=== PATIENT | male | born 1950 | race Caucasian/White ===

== ENCOUNTER 2023-11-06 13:25 | Inpatient (IN) ==
[2023-11-06] MEDS ORDERED: cefTRIAXone 2 GM ADDV.VIAL 2 GM in NS 0.9% 100 ml BAG 100 ML IV ONE (13:48)
[2023-11-06 13:52] LABS: ABS Lymphocytes 0.5 10^3/uL (1.0-4.8); ABS Monocytes 0.3 10^3/uL (0.0-1.1); ABS Neutrophils 3.7 10^3/uL (1.5-7.6); Eosinophil % 0.2 %; Hematocrit 39.4 % (38-53); Lymphocyte % 10.7 %; Mean Corpuscular Hemoglobin 29.7 pg (27-33); Mean Corpuscular Hgb Conc 33.1 g/dL (31-36); Mean Corpuscular Volume 89.8 fL (80-97); Mean Platelet Volume 7.1 fL (7.5-11.2); Nucleated Red Blood Cells % 0.1 %/100WBC (0.0-0.8); Platelet Count 160 10^3/uL (150-450); Red Blood Count 4.38 10^6/uL (4.06-5.63); Red Cell Distribution Width 15.6 % (12-17); White Blood Count 4.5 10^3/uL (3.6-10.2)
[2023-11-06 14:20] LABS: Activated Partial Thrombo Time 31.7 seconds (26.0-38.0); INR 1.19 (0.83-1.13)
[2023-11-06 14:26] LABS: Albumin 3.5 g/dL (3.2-5.2); Albumin/Globulin Ratio 1.1 (1-3); Calcium 8.8 mg/dL (8.6-10.3); Creatinine, Serum 2.15 mg/dL (0.67-1.17); Direct Bilirubin 0.1 mg/dL (0.03-0.18); Globulin 3.1 g/dL (2-4); HDL Cholesterol 32.5 mg/dL; Indirect Bilirubin 0.5 mg/dL (0.3-1.0); Potassium 4.7 mmol/L (3.5-5.0); Total Bilirubin 0.6 mg/dL (0.2-1.0); Total Protein 6.6 g/dL (6.4-8.9); eGFR CKD-EPI 31.7 (>60)
[2023-11-06 14:29] LABS: Urine Appearance Clear; Urine Bilirubin Negative (Negative); Urine Blood Negative (Negative); Urine Color Light-Yellow; Urine Glucose Negative (Negative); Urine Ketones Negative (Negative); Urine Nitrite Negative (Negative); Urine Protein 2+ (>=100 mg/dL) (Negative); Urine Specific Gravity 1.018 (1.002-1.030); Urine Urobilinogen Negative (Negative); Urine pH 7.5 (5.0-8.0)
[2023-11-06 14:31] LABS: Urine Bacteria Absent /HPF (Absent); Urine Red Blood Cell Trace(0-2/hpf) /HPF (0-Trace); Urine White Blood Cell Absent /HPF (0-Trace)
[2023-11-06 14:36] LABS: PCO2 Arterial 41 mmHg (35-45); PO2 Arterial 106 mmHg (80-100)
[2023-11-06] MEDS: Acetaminophen IV 1 GM/100ML 1,000 MG/100 ML BAG IV ONE (14:47)
[2023-11-06] MEDS: Lactated Ringers 1000 ml BAG 1,000 ML IV ONE (14:47)
[2023-11-06] MEDS: cefTRIAXone 2 gm/50 mL D5W 2 GM/50 ML BAG IV ONE (15:11)
[2023-11-06] MEDS ORDERED: Ampicillin IV 2 GM in NS 0.9% 100 ml BAG 100 ML IVPB ONE (16:35)
[2023-11-06] MEDS ORDERED: Lidocaine 1% w EPI 1:100,000 MDV 20 ML VIAL ONE (16:57)
[2023-11-06] MEDS ORDERED: Vancomycin 1,000 MG VIAL IVPB SCH (17:00)
[2023-11-06 17:55] LABS: Body Fluid Source Cerebral Spinal
[2023-11-06 18:11] LABS: CSF Body Fluid WBC 2 /mcL
[2023-11-06 18:12] LABS: Body Fluid Appearance Clear; Body Fluid Color Colorless
[2023-11-06 18:13] LABS: CSF Tube # 4
[2023-11-06] MEDS: Iodixanol (CONTRAST) 320 MG/ML 100 ML SDV IV ONE (18:36)
[2023-11-06 18:40] LABS: Body Fluid Mono 45 %; Body Fluid Total Cells Counted 75
[2023-11-06] MEDS: Ampicillin ADVAN 2 GM in NS 0.9% 100 ML 100 ML IVPB ONE (18:41)
[2023-11-06] MEDS: Vancomycin 2,000 MG in NS 0.9% 500 ml BAG 500 ML IVPB ONE (18:43)
[2023-11-06 19:45] LABS: CSF Glucose 75 mg/dL (40-70)
[2023-11-07] MEDS: NS 0.9% IVPB ONE (00:01)
[2023-11-07] MEDS: ACYCLOVIR IVPB ONE (00:01)
[2023-11-07 01:09] LABS: High Sensitivity Troponin 3 Hr 40 pg/mL (<20)
[2023-11-07] MEDS: Lactated Ringers 1000 ml BAG 1,000 ML IV SCH (01:39)
[2023-11-07] MEDS: Enoxaparin 40 MG/0.4 ML SYR SUBCUT SCH (01:57)
[2023-11-07 02:09] LABS: C Reactive Protein 52.16 mg/L (<8.01)
[2023-11-07 02:25] LABS: TSH Ultra Thyroid Stim Horm 1.22 mcIU/mL (0.34-5.60)
[2023-11-07] MEDS: cefTRIAXone 2 gm/50 mL D5W 2 GM/50 ML BAG IV SCH ×2 (03:09→16:41)
[2023-11-07 04:23] LABS: ABS Lymphocytes 0.4 10^3/uL (1.0-4.8); ABS Monocytes 0.4 10^3/uL (0.0-1.1); ABS Neutrophils 6.9 10^3/uL (1.5-7.6); ABS Nucleated RBC 0.01 10^3/ul; Hematocrit 38.5 % (38-53); Hemoglobin 12.8 g/dL (13.2-16.3); Lymphocyte % 4.7 %; Mean Corpuscular Hgb Conc 33.3 g/dL (31-36); Mean Platelet Volume 7.3 fL (7.5-11.2); Nucleated Red Blood Cells % 0.1 %/100WBC (0.0-0.8); Platelet Count 144 10^3/uL (150-450); Red Blood Count 4.27 10^6/uL (4.06-5.63); Red Cell Distribution Width 15.8 % (12-17); White Blood Count 7.7 10^3/uL (3.6-10.2)
[2023-11-07 05:03] LABS: Albumin 3.1 g/dL (3.2-5.2); Calcium 8.1 mg/dL (8.6-10.3); Creatinine, Serum 2.28 mg/dL (0.67-1.17); Magnesium 1.7 mg/dL (1.9-2.7); Potassium 4.3 mmol/L (3.5-5.0); Total Bilirubin 0.6 mg/dL (0.2-1.0); eGFR CKD-EPI 29.6 (>60)
[2023-11-07 05:19] LABS: Globulin 3.1 g/dL (2-4); Total Protein 6.2 g/dL (6.4-8.9)
[2023-11-07] MEDS: Haloperidol 5 mg/ml SDV IV/IM 5 MG/ML AMP IV SLOW PU PRN (06:49)
[2023-11-07] MEDS: Mometasone/Formoter 200/5 MDI INH SCH (08:08)
[2023-11-07] MEDS: Acetaminophen IV 1 GM/100ML 1,000 MG/100 ML BAG IV PRN (12:13)
[2023-11-07] MEDS ORDERED: Vancomycin per Pharmacy 1 EA NOTE FOLLOW UP SCH (13:00)
[2023-11-07] MEDS: Magnesium Sulf 4 GM/100 ML IV 4,000 MG/100 ML BAG IVPB ONE (13:04)
[2023-11-07] MEDS: Aspirin EC 81 mg TAB.EC (enteric coated) PO SCH (13:12)
[2023-11-07] MEDS: Ampicillin ADVAN 2 GM in NS 0.9% 100 ml BAG 100 ML IVPB SCH (15:11)
[2023-11-07] MEDS: Acyclovir IV 800 MG in NS 0.9% 250 ml 250 ML IVPB SCH (15:17)
[2023-11-07] MEDS ORDERED: CMCS: Pravastatin 20 mg TAB (NF) PO SCH (21:00)
[2023-11-07] MEDS: Vancomycin 2,000 MG in NS 0.9% 500 ml BAG 500 ML IVPB ONE (21:59)
[2023-11-08] MEDS: Ampicillin ADVAN 2 GM in NS 0.9% 100 ml BAG 100 ML IVPB SCH (05:40)
[2023-11-08 06:54] LABS: ABS Lymphocytes 0.3 10^3/uL (1.0-4.8); ABS Monocytes 0.3 10^3/uL (0.0-1.1); ABS Neutrophils 4.8 10^3/uL (1.5-7.6); Hematocrit 36.5 % (38-53); Hemoglobin 12.2 g/dL (13.2-16.3); Lymphocyte % 5.6 %; Mean Corpuscular Hemoglobin 29.8 pg (27-33); Mean Corpuscular Hgb Conc 33.3 g/dL (31-36); Mean Corpuscular Volume 89.7 fL (80-97); Mean Platelet Volume 7.9 fL (7.5-11.2); Platelet Count 101 10^3/uL (150-450); Red Blood Count 4.07 10^6/uL (4.06-5.63); Red Cell Distribution Width 15.7 % (12-17); White Blood Count 5.4 10^3/uL (3.6-10.2)
[2023-11-08 07:13] LABS: Calcium 7.7 mg/dL (8.6-10.3); Creatinine, Serum 3.41 mg/dL (0.67-1.17); Potassium 4.2 mmol/L (3.5-5.0); Vancomycin Random 22.5 mcg/mL; eGFR CKD-EPI 18.2 (>60)
[2023-11-08] MEDS: Vancomycin Random Level NOTE FOLLOW UP ONE (08:29)
[2023-11-08] MEDS: DOXYcycline 100 MG in NS 0.9% 250 ml 250 ML IVPB SCH (12:02)
[2023-11-08] MEDS: Gadoteridol (CONTRAST) 279.3 MG/ML 10 ML IV ONE (12:16)
[2023-11-08] MEDS ORDERED: Albuterol HFA INHALER 8 gm MDI INH PRN (12:19)
[2023-11-08] MEDS: Azithromycin 500 mg/250 ml NS 500 MG/250 ML BAG IVPB SCH (12:36)
[2023-11-08 13:06] LABS: RBC Parasite Smear No Parasites Seen (No Parasite)
[2023-11-08] MEDS: Cyanocobalamin INJ 1,000 MCG/ML VIAL 1 ML VIAL IM SCH (14:29)
[2023-11-08] MEDS: Albuterol HFA INHALER 8 gm MDI INH SCH (15:15)
[2023-11-08 20:09] LABS: PCO2 Arterial 44 mmHg (35-45); PO2 Arterial 88 mmHg (80-100)
[2023-11-08] MEDS: Albuterol/Ipratropium NEB.SOL (2.5/0.5 MG) 3 ML NEB.SOLN INH ONE (20:13)
[2023-11-08 20:34] LABS: Hematocrit 35.6 % (38-53); Hemoglobin 11.7 g/dL (13.2-16.3); Mean Corpuscular Hemoglobin 29.1 pg (27-33); Mean Corpuscular Hgb Conc 32.8 g/dL (31-36); Mean Corpuscular Volume 88.9 fL (80-97); Red Blood Count 4.01 10^6/uL (4.06-5.63); White Blood Count 3.3 10^3/uL (3.6-10.2)
[2023-11-08 21:11] LABS: ABS Lymphocytes 0.2 10^3/uL (1.0-4.8); ABS Monocytes 0.2 10^3/uL (0.0-1.1); ABS Neutrophils 2.8 10^3/uL (1.5-7.6); ABS Nucleated RBC 0.02 10^3/ul; Eosinophil % 0.2 %; Lymphocyte % 5.7 %; Mean Platelet Volume 8.1 fL (7.5-11.2); Nucleated Red Blood Cells % 0.7 %/100WBC (0.0-0.8); Platelet Count 85 10^3/uL (150-450)
[2023-11-08 21:14] LABS: Calcium 7.7 mg/dL (8.6-10.3); Creatinine, Serum 4.41 mg/dL (0.67-1.17); Potassium 4.4 mmol/L (3.5-5.0); eGFR CKD-EPI 13.4 (>60)
[2023-11-08 21:35] LABS: ABS Lymphocytes 0.2 10^3/uL (1.0-4.8); ABS Monocytes 0.2 10^3/uL (0.0-1.1); ABS Neutrophils 2.8 10^3/uL (1.5-7.6); ABS Nucleated RBC 0.01 10^3/ul; Eosinophil % 0.3 %; Hematocrit 35.5 % (38-53); Hemoglobin 11.7 g/dL (13.2-16.3); Lymphocyte % 6.2 %; Mean Corpuscular Hemoglobin 29.1 pg (27-33); Mean Corpuscular Hgb Conc 32.8 g/dL (31-36); Mean Corpuscular Volume 88.6 fL (80-97); Nucleated Red Blood Cells % 0.2 %/100WBC (0.0-0.8); Platelet Count 86 10^3/uL (150-450); Red Blood Count 4.01 10^6/uL (4.06-5.63); Red Cell Distribution Width 15.6 % (12-17); White Blood Count 3.3 10^3/uL (3.6-10.2)
[2023-11-08 21:58] LABS: Creatinine, Serum 4.42 mg/dL (0.67-1.17); eGFR CKD-EPI 13.4 (>60)
[2023-11-08] MEDS: Heparin 5000 UNITS/ML 1 mL VIAL IV SCH (22:55)
[2023-11-08] MEDS: Heparin DRIP 25,000 UNITS BAG 25,000 UNITS/250 ML BAG IV SCH (22:56)
[2023-11-09] MEDS: NS 0.9% IVPB SCH (03:22)
[2023-11-09] MEDS: ACYCLOVIR IVPB SCH (03:22)
[2023-11-09 05:51] LABS: ABS Lymphocytes 0.2 10^3/uL (1.0-4.8); ABS Monocytes 0.2 10^3/uL (0.0-1.1); ABS Neutrophils 2.5 10^3/uL (1.5-7.6); Eosinophil % 0.9 %; Hematocrit 33.8 % (38-53); Hemoglobin 11.3 g/dL (13.2-16.3); Mean Corpuscular Hemoglobin 29.4 pg (27-33); Mean Corpuscular Hgb Conc 33.4 g/dL (31-36); Mean Corpuscular Volume 88.2 fL (80-97); Mean Platelet Volume 8.3 fL (7.5-11.2); Platelet Count 75 10^3/uL (150-450); Red Blood Count 3.84 10^6/uL (4.06-5.63); Red Cell Distribution Width 15.4 % (12-17)
[2023-11-09 06:28] LABS: Calcium 7.8 mg/dL (8.6-10.3); Creatinine, Serum 4.66 mg/dL (0.67-1.17); Magnesium 2.2 mg/dL (1.9-2.7); Potassium 4.1 mmol/L (3.5-5.0); eGFR CKD-EPI 12.5 (>60)
[2023-11-09] MEDS ORDERED: Albuterol HFA INHALER 8 gm MDI INH PRN (08:14)
[2023-11-09] MEDS: Lactated Ringers 1000 ml BAG 1,000 ML IV SCH (08:46)
[2023-11-09 11:21] LABS: Vitamin D Total 25(OH) 9.3 ng/mL (20-50)
[2023-11-09 17:04] LABS: ABS Lymphocytes 0.3 10^3/uL (1.0-4.8); ABS Monocytes 0.2 10^3/uL (0.0-1.1); ABS Neutrophils 1.7 10^3/uL (1.5-7.6); Hematocrit 32.9 % (38-53); Lymphocyte % 14.6 %; Mean Corpuscular Hemoglobin 29.7 pg (27-33); Mean Corpuscular Hgb Conc 33.4 g/dL (31-36); Mean Corpuscular Volume 88.8 fL (80-97); Mean Platelet Volume 8.6 fL (7.5-11.2); Nucleated Red Blood Cells % 0.2 %/100WBC (0.0-0.8); Platelet Count 74 10^3/uL (150-450); Red Cell Distribution Width 15.8 % (12-17); White Blood Count 2.3 10^3/uL (3.6-10.2)
[2023-11-09] MEDS: Sulfur Hexaflouride MICROSPHR 25 MG VIAL IV ONE (17:26)
[2023-11-09] MEDS: Albuterol HFA INHALER 8 gm MDI INH SCH (17:49)
[2023-11-09] MEDS: Heparin 5000 UNITS/ML 1 mL VIAL IV PRN (19:09)
[2023-11-09] MEDS: Heparin DRIP 25,000 UNITS BAG 25,000 UNITS/250 ML BAG IV SCH (19:13)
[2023-11-09] MEDS: Latanoprost 0.005% 2.5 ml BTL BOTH EYES SCH (22:23)
[2023-11-09] MEDS: Betaxolol 0.5 % OPHTH.SOLN 5 ML BOTH EYES SCH (22:23)
[2023-11-09 22:37] LABS: HSV 1 PCR, CSF Negative (Negative); HSV 2 PCR, CSF Negative (Negative)
[2023-11-10 07:38] LABS: ABS Eosinophils 0.1 10^3/uL (0.0-0.5); ABS Lymphocytes 0.5 10^3/uL (1.0-4.8); ABS Monocytes 0.5 10^3/uL (0.0-1.1); ABS Neutrophils 1.8 10^3/uL (1.5-7.6); ABS Nucleated RBC 0.01 10^3/ul; Eosinophil % 2.4 %; Hematocrit 33.5 % (38-53); Hemoglobin 11.2 g/dL (13.2-16.3); Mean Corpuscular Hemoglobin 29.7 pg (27-33); Mean Corpuscular Hgb Conc 33.3 g/dL (31-36); Mean Corpuscular Volume 88.9 fL (80-97); Mean Platelet Volume 8.8 fL (7.5-11.2); Nucleated Red Blood Cells % 0.2 %/100WBC (0.0-0.8); Platelet Count 78 10^3/uL (150-450); Red Blood Count 3.77 10^6/uL (4.06-5.63); Red Cell Distribution Width 16.2 % (12-17); White Blood Count 2.8 10^3/uL (3.6-10.2)
[2023-11-10 09:29] LABS: Calcium 7.9 mg/dL (8.6-10.3); Creatinine, Serum 5.12 mg/dL (0.67-1.17); Magnesium 2.4 mg/dL (1.9-2.7); Potassium 4.8 mmol/L (3.5-5.0); eGFR CKD-EPI 11.2 (>60)
[2023-11-10 11:38] LABS: C Reactive Protein 230.01 mg/L (<8.01)
[2023-11-10 17:02] LABS: PCO2 Arterial 57 mmHg (35-45); PO2 Arterial 65 mmHg (80-100)
[2023-11-10 18:41] LABS: Urine Appearance No Cx Turbid (Clear); Urine Bilirubin No Culture Negative (Negative); Urine Blood No Culture 3+ (Negative); Urine Glucose No Culture Negative (Negative); Urine Ketones No Culture Negative (Negative); Urine Leukocytes No Culture 25 (Trace) Leu/uL (Negative); Urine Nitrite No Culture Negative (Negative); Urine Protein No Culture 2+ (>=100 mg/dL) (Negative); Urine Specific Gravity No Cx 1.014 (1.002-1.030); Urine Urobilinogen No Cx Negative (Negative); Urine pH No Culture 5.5 (5.0-8.0)
[2023-11-10 18:58] LABS: Urine Bacteria No Culture 1+ /HPF (Absent); Urine Red Blood Cell No Cult 3+(>10/hpf) /HPF (0-Trace); Urine White Blood Cell No Cult 3+(>20/hpf) /HPF (0-Trace)
[2023-11-10 19:01] LABS: Urine Color No Culture Light-Orange
[2023-11-10 19:11] LABS: PCO2 Arterial 51 mmHg (35-45); PO2 Arterial 77 mmHg (80-100)
[2023-11-10 22:11] LABS: PCO2 Arterial 47 mmHg (35-45); PO2 Arterial 79 mmHg (80-100)
[2023-11-10] MEDS: Haloperidol 5 mg/ml SDV IV/IM 5 MG/ML AMP IV SLOW PU PRN (22:27)
[2023-11-11] MEDS ORDERED: Haloperidol 5 mg/ml SDV IV/IM 5 MG/ML AMP IV SLOW PU PRN (03:54)
[2023-11-11] MEDS ORDERED: Sulfur Hexaflouride MICROSPHR 25 MG VIAL ONE (07:27)
[2023-11-11 10:01] LABS: ALT 116 U/L (7-52); Albumin 2.9 g/dL (3.2-5.2); Alkaline Phosphatase 68 U/L (35-149); Anion Gap 12 mmol/L (2-16); Blood Urea Nitrogen 56 mg/dL (6-24); C Reactive Protein 203.57 mg/L (<8.01); CO2 Carbon Dioxide 19 mmol/L (22-32); Calcium 7.7 mg/dL (8.6-10.3); Chloride 111 mmol/L (101-111); Creatinine, Serum 5.49 mg/dL (0.67-1.17); Glucose 94 mg/dL (70-100); Magnesium 2.3 mg/dL (1.9-2.7); Sodium 142 mmol/L (135-145); Total Bilirubin 0.4 mg/dL (0.2-1.0); Total Protein 5.9 g/dL (6.4-8.9); eGFR CKD-EPI 10.3 (>60)
[2023-11-11 12:16] LABS: Hematocrit 31.2 % (38-53); Hemoglobin 9.9 g/dL (13.2-16.3); Mean Corpuscular Hemoglobin 28.7 pg (27-33); Mean Corpuscular Hgb Conc 31.7 g/dL (31-36); Mean Corpuscular Volume 90.5 fL (80-97); Mean Platelet Volume 8.7 fL (7.5-11.2); Platelet Count 100 10^3/uL (150-450); Red Blood Count 3.44 10^6/uL (4.06-5.63); White Blood Count 5.1 10^3/uL (3.6-10.2)
[2023-11-11 12:32] LABS: AST Redraw 133 U/L (13-39); Phosphorus 4.4 mg/dL (2.5-5.0); Potassium Redraw 4.5 mmol/L (3.5-5.0)
[2023-11-11 13:29] LABS: ABS Eosinophils 0.1 10^3/uL (0.0-0.5); ABS Lymphocytes 1.6 10^3/uL (1.0-4.8); ABS Monocytes 0.7 10^3/uL (0.0-1.1); ABS Neutrophils 2.7 10^3/uL (1.5-7.6); ABS Nucleated RBC 0.01 10^3/ul; Eosinophil % 1.1 %; Hypochromasia 1+; Lymphocyte % 31.9 %; Nucleated Red Blood Cells % 0.1 %/100WBC (0.0-0.8)
[2023-11-11 13:30] LABS: ABS Basophils 0.1 10^3/ul (0.0-0.1); ABS Eosinophils 0.1 10^3/ul (0.0-0.5); ABS Lymphocytes 1.4 10^3/ul (1.0-4.8); ABS Monocytes 0.5 10^3/ul (0.0-1.1); ABS Neutrophils 3.1 10^3/ul (1.5-7.6)
[2023-11-11 14:17] LABS: Rheumatoid Factor < 10 IU/mL (<15)
[2023-11-11 14:22] LABS: C Reactive Protein 199.32 mg/L (<8.01)
[2023-11-11 16:57] LABS: Anaplasma phagocytophilum Positive (Negative); B. miyamotoi PCR, B Negative (Negative); Babesia divergens/MO-1 Negative (Negative); Babesia ducani Negative (Negative); Ehrlichia chaffeensis Negative (Negative); Ehrlichia ewingii/canis Negative (Negative); Ehrlichia muris eauclairensis Negative (Negative)
[2023-11-11] MEDS ORDERED: Heparin 5000 UNITS/ML 1 mL VIAL IV PRN (17:00)
[2023-11-11] MEDS: Heparin DRIP 25,000 UNITS BAG 25,000 UNITS/250 ML BAG IV SCH ×2 (17:22→18:06)
[2023-11-11] MEDS: cefTRIAXone 1 gm/50 mL D5W 1 GM/50 ML BAG IV SCH (18:00)
[2023-11-12 04:50] LABS: Hematocrit 29.1 % (38-53); Hemoglobin 9.6 g/dL (13.2-16.3); Mean Corpuscular Hemoglobin 29.9 pg (27-33); Mean Corpuscular Hgb Conc 33.1 g/dL (31-36); Mean Corpuscular Volume 90.4 fL (80-97); Mean Platelet Volume 8.5 fL (7.5-11.2); Platelet Count 107 10^3/uL (150-450); Red Blood Count 3.22 10^6/uL (4.06-5.63); Red Cell Distribution Width 16.7 % (12-17); White Blood Count 5.3 10^3/uL (3.6-10.2)
[2023-11-12 05:19] LABS: Albumin 2.6 g/dL (3.2-5.2); Calcium 7.4 mg/dL (8.6-10.3); Creatinine, Serum 5.94 mg/dL (0.67-1.17); Globulin 2.7 g/dL (2-4); Magnesium 2.1 mg/dL (1.9-2.7); Potassium 4.4 mmol/L (3.5-5.0); Total Bilirubin 0.4 mg/dL (0.2-1.0); Total Protein 5.3 g/dL (6.4-8.9); eGFR CKD-EPI 9.4 (>60)
[2023-11-12 06:20] LABS: ABS Eosinophils 0.1 10^3/uL (0.0-0.5); ABS Lymphocytes 2.3 10^3/uL (1.0-4.8); ABS Monocytes 0.6 10^3/uL (0.0-1.1); ABS Neutrophils 2.3 10^3/uL (1.5-7.6); ABS Nucleated RBC 0.01 10^3/ul; Eosinophil % 2.1 %; Lymphocyte % 43.5 %; Nucleated Red Blood Cells % 0.1 %/100WBC (0.0-0.8)
[2023-11-12] MEDS: Albuterol HFA INHALER 8 gm MDI INH PRN (07:41)
[2023-11-12] MEDS ORDERED: NS 0.9% 1000 ml BAG 200 ML IV PRN (13:09)
[2023-11-12] MEDS ORDERED: Albumin Human 25% 25 GM/100 ML BTL IV PRN (13:09)
[2023-11-12] MEDS ORDERED: NS 0.9% 1000 ml BAG 100 ML IV PRN (13:09)
[2023-11-12] MEDS: Heparin 1,000 UNIT/ML 10 ml (10,000 UNITS) CATHLAB/DIALYSIS DIALYSIS PRN (17:50)
[2023-11-12] MEDS: Benzocaine/Menthol LOZ PO PRN (20:51)
[2023-11-13 04:55] LABS: Hematocrit 31.2 % (38-53); Hemoglobin 10.3 g/dL (13.2-16.3); Mean Corpuscular Hemoglobin 29.6 pg (27-33); Mean Corpuscular Volume 89.8 fL (80-97); Mean Platelet Volume 8.3 fL (7.5-11.2); Platelet Count 177 10^3/uL (150-450); Red Blood Count 3.48 10^6/uL (4.06-5.63); Red Cell Distribution Width 16.3 % (12-17); White Blood Count 6.6 10^3/uL (3.6-10.2)
[2023-11-13 05:10] LABS: Albumin 2.9 g/dL (3.2-5.2); Calcium 7.5 mg/dL (8.6-10.3); Creatinine, Serum 4.09 mg/dL (0.67-1.17); Globulin 2.8 g/dL (2-4); Magnesium 1.9 mg/dL (1.9-2.7); Potassium 4.2 mmol/L (3.5-5.0); Total Bilirubin 0.5 mg/dL (0.2-1.0); Total Protein 5.7 g/dL (6.4-8.9); eGFR CKD-EPI 14.7 (>60)
[2023-11-13 05:16] LABS: ABS Eosinophils 0.2 10^3/uL (0.0-0.5); ABS Lymphocytes 2.4 10^3/uL (1.0-4.8); ABS Monocytes 0.7 10^3/uL (0.0-1.1); ABS Neutrophils 3.3 10^3/uL (1.5-7.6); ABS Nucleated RBC 0.01 10^3/ul; Eosinophil % 2.9 %; Nucleated Red Blood Cells % 0.2 %/100WBC (0.0-0.8)
[2023-11-13] MEDS: Heparin 5000 UNITS/ML 1 mL VIAL IV PRN (05:30)
[2023-11-13] MEDS: Magnesium Sulfate IV 1GM/100ML 1 GM/100 ML BAG IV ONE (07:09)
[2023-11-13] MEDS ORDERED: Senna TAB 8.6 mg TAB PO PRN (09:00)
[2023-11-13] MEDS ORDERED: Magnesium Hydroxide LIQ 30 ML UDC PO PRN (09:00)
[2023-11-13] MEDS: Magnesium Hydroxide LIQ 30 ML UDC PO SCH (09:27)
[2023-11-13 17:45] LABS: HIV 4th Generation Nonreactive (Nonreactive)
[2023-11-13 18:42] LABS: Complement C3 132 mg/dL (75 - 175)
[2023-11-13 19:03] LABS: Hepatitis B Surface Antigen Nonreactive (Nonreactive)
[2023-11-13 19:57] LABS: Hepatitis B Surface Antigen Nonreactive (Nonreactive)
[2023-11-13 20:08] LABS: Hepatitis B Surface Ab Not Immune (Immune)
[2023-11-13 20:09] LABS: Hepatitis C Antibody Negative (Negative)
[2023-11-14 05:13] LABS: Hematocrit 28.6 % (38-53); Hemoglobin 9.5 g/dL (13.2-16.3); Mean Corpuscular Hemoglobin 29.5 pg (27-33); Mean Corpuscular Hgb Conc 33.1 g/dL (31-36); Mean Corpuscular Volume 88.9 fL (80-97); Mean Platelet Volume 7.5 fL (7.5-11.2); Platelet Count 221 10^3/uL (150-450); Red Blood Count 3.21 10^6/uL (4.06-5.63); Red Cell Distribution Width 15.6 % (12-17); White Blood Count 5.7 10^3/uL (3.6-10.2)
[2023-11-14 06:43] LABS: ABS Eosinophils 0.2 10^3/uL (0.0-0.5); ABS Monocytes 0.7 10^3/uL (0.0-1.1); ABS Neutrophils 2.8 10^3/uL (1.5-7.6); ABS Nucleated RBC 0.01 10^3/ul; Eosinophil % 3.2 %; Nucleated Red Blood Cells % 0.2 %/100WBC (0.0-0.8)
[2023-11-14 06:44] LABS: Basophilic Stippling 1+; Hypochromasia 1+
[2023-11-14 07:06] LABS: PCO2 Arterial 46 mmHg (35-45); PO2 Arterial 128 mmHg (80-100)
[2023-11-14 07:47] LABS: Albumin 2.6 g/dL (3.2-5.2); Albumin/Globulin Ratio 0.9 (1-3); Calcium 7.6 mg/dL (8.6-10.3); Creatinine, Serum 3.47 mg/dL (0.67-1.17); Globulin 2.8 g/dL (2-4); Potassium 3.9 mmol/L (3.5-5.0); Total Bilirubin 0.4 mg/dL (0.2-1.0); Total Protein 5.4 g/dL (6.4-8.9); eGFR CKD-EPI 17.9 (>60)
[2023-11-14 11:51] LABS: C-ANCA Negative (Negative); P-ANCA Negative (Negative)
[2023-11-14 15:21] LABS: Kappa Free Light Chain 11.1 mg/dL; Lambda Free Light Chain, S 8.45 mg/dL
[2023-11-14 15:56] LABS: IgG Immunoblot Positive (Negative); IgM Immunoblot Negative (Negative)
[2023-11-14 18:14] LABS: AGNA-1, CSF Negative (Negative); Amphiphysin Ab, CSF Negative (Negative); CRMP-5-IgG, CSF Negative (Negative); IFA Notes None.; PCA-1, CSF Negative (Negative); PCA-2, CSF Negative (Negative); PCA-Tr, CSF Negative (Negative)
[2023-11-15 05:08] LABS: Hematocrit 29.6 % (38-53); Hemoglobin 9.8 g/dL (13.2-16.3); Mean Corpuscular Hemoglobin 29.4 pg (27-33); Mean Corpuscular Hgb Conc 33.2 g/dL (31-36); Mean Corpuscular Volume 88.6 fL (80-97); Mean Platelet Volume 7.5 fL (7.5-11.2); Platelet Count 275 10^3/uL (150-450); Red Blood Count 3.34 10^6/uL (4.06-5.63); Red Cell Distribution Width 15.8 % (12-17); White Blood Count 6.1 10^3/uL (3.6-10.2)
[2023-11-15 06:26] LABS: Albumin 2.7 g/dL (3.2-5.2); Albumin/Globulin Ratio 0.9 (1-3); Calcium 8.1 mg/dL (8.6-10.3); Creatinine, Serum 3.94 mg/dL (0.67-1.17); Globulin 2.9 g/dL (2-4); Potassium 3.8 mmol/L (3.5-5.0); Total Bilirubin 0.4 mg/dL (0.2-1.0); Total Protein 5.6 g/dL (6.4-8.9); eGFR CKD-EPI 15.3 (>60)
[2023-11-15 08:10] LABS: ABS Basophils 0.1 10^3/uL (0.0-0.1); ABS Eosinophils 0.2 10^3/uL (0.0-0.5); ABS Lymphocytes 2.1 10^3/uL (1.0-4.8); ABS Monocytes 0.7 10^3/uL (0.0-1.1); ABS Nucleated RBC 0.01 10^3/ul; Basophilic Stippling 2+; Lymphocyte % 34.4 %; Nucleated Red Blood Cells % 0.2 %/100WBC (0.0-0.8)
[2023-11-15 09:22] LABS: Flag, M-protein Isotype Negative (Negative); Immunoglobulin A (IgA), S 220 mg/dL (61 - 356); Immunoglobulin G (IgG), S 1220 mg/dL (767 - 1590); Immunoglobulin M (IgM), S 121 mg/dL (37 - 286)
[2023-11-16 06:23] LABS: Hematocrit 29.8 % (38-53); Hemoglobin 9.7 g/dL (13.2-16.3); Mean Corpuscular Hemoglobin 28.9 pg (27-33); Mean Corpuscular Hgb Conc 32.6 g/dL (31-36); Mean Corpuscular Volume 88.8 fL (80-97); Mean Platelet Volume 7.6 fL (7.5-11.2); Platelet Count 289 10^3/uL (150-450); Red Blood Count 3.36 10^6/uL (4.06-5.63); Red Cell Distribution Width 15.8 % (12-17); White Blood Count 7.4 10^3/uL (3.6-10.2)
[2023-11-16 07:43] LABS: Albumin 2.8 g/dL (3.2-5.2); Albumin/Globulin Ratio 0.9 (1-3); Calcium 8.1 mg/dL (8.6-10.3); Creatinine, Serum 3.82 mg/dL (0.67-1.17); Magnesium 1.9 mg/dL (1.9-2.7); Potassium 3.5 mmol/L (3.5-5.0); Total Bilirubin 0.5 mg/dL (0.2-1.0); Total Protein 5.8 g/dL (6.4-8.9); eGFR CKD-EPI 15.9 (>60)
[2023-11-16 08:28] LABS: ABS Eosinophils 0.2 10^3/uL (0.0-0.5); ABS Lymphocytes 2.2 10^3/uL (1.0-4.8); ABS Nucleated RBC 0.02 10^3/ul; Eosinophil % 2.6 %; Nucleated Red Blood Cells % 0.3 %/100WBC (0.0-0.8); RBC Morphology Normal (Normal)
[2023-11-17 06:09] LABS: Hematocrit 29.5 % (38-53); Hemoglobin 9.8 g/dL (13.2-16.3); Mean Corpuscular Hemoglobin 29.7 pg (27-33); Mean Corpuscular Hgb Conc 33.4 g/dL (31-36); Mean Corpuscular Volume 89.1 fL (80-97); Mean Platelet Volume 7.2 fL (7.5-11.2); Platelet Count 286 10^3/uL (150-450); Red Blood Count 3.31 10^6/uL (4.06-5.63); Red Cell Distribution Width 15.9 % (12-17); White Blood Count 6.6 10^3/uL (3.6-10.2)
[2023-11-17 07:26] LABS: ABS Eosinophils 0.2 10^3/uL (0.0-0.5); ABS Lymphocytes 1.8 10^3/uL (1.0-4.8); ABS Monocytes 0.9 10^3/uL (0.0-1.1); ABS Neutrophils 3.6 10^3/uL (1.5-7.6); ABS Nucleated RBC 0.01 10^3/ul; Eosinophil % 2.4 %; Lymphocyte % 27.7 %; Nucleated Red Blood Cells % 0.2 %/100WBC (0.0-0.8)
[2023-11-17 08:10] LABS: Albumin 2.8 g/dL (3.2-5.2); Albumin/Globulin Ratio 0.9 (1-3); Calcium 8.3 mg/dL (8.6-10.3); Creatinine, Serum 3.85 mg/dL (0.67-1.17); Globulin 3.2 g/dL (2-4); Magnesium 1.9 mg/dL (1.9-2.7); Potassium 3.9 mmol/L (3.5-5.0); Total Bilirubin 0.4 mg/dL (0.2-1.0); eGFR CKD-EPI 15.8 (>60)
[2023-11-18 06:23] LABS: Hematocrit 30.1 % (38-53); Mean Corpuscular Hemoglobin 29.7 pg (27-33); Mean Corpuscular Hgb Conc 33.1 g/dL (31-36); Mean Corpuscular Volume 89.5 fL (80-97); Mean Platelet Volume 7.5 fL (7.5-11.2); Platelet Count 280 10^3/uL (150-450); Red Blood Count 3.36 10^6/uL (4.06-5.63); Red Cell Distribution Width 15.9 % (12-17); White Blood Count 6.4 10^3/uL (3.6-10.2)
[2023-11-18 06:39] LABS: Albumin 2.9 g/dL (3.2-5.2); Albumin/Globulin Ratio 0.9 (1-3); Calcium 8.6 mg/dL (8.6-10.3); Creatinine, Serum 3.89 mg/dL (0.67-1.17); Globulin 3.4 g/dL (2-4); Magnesium 1.9 mg/dL (1.9-2.7); Potassium 3.8 mmol/L (3.5-5.0); Total Bilirubin 0.4 mg/dL (0.2-1.0); Total Protein 6.3 g/dL (6.4-8.9); eGFR CKD-EPI 15.6 (>60)
[2023-11-18 07:42] LABS: ABS Eosinophils 0.2 10^3/uL (0.0-0.5); ABS Lymphocytes 1.7 10^3/uL (1.0-4.8); ABS Monocytes 0.9 10^3/uL (0.0-1.1); ABS Neutrophils 3.5 10^3/uL (1.5-7.6); ABS Nucleated RBC 0.01 10^3/ul; Eosinophil % 2.4 %; Lymphocyte % 27.5 %; Nucleated Red Blood Cells % 0.2 %/100WBC (0.0-0.8)
[2023-11-18] MEDS: Polyethylene Glycol 3350 17 GM PACKET PO PRN (08:10)
[2023-11-18] MEDS: FLUTICASONE SALMETEROL INH SCH (20:52)
[2023-11-19 05:47] LABS: ABS Basophils 0.1 10^3/uL (0.0-0.1); ABS Eosinophils 0.2 10^3/uL (0.0-0.5); ABS Lymphocytes 1.9 10^3/uL (1.0-4.8); ABS Monocytes 0.9 10^3/uL (0.0-1.1); ABS Neutrophils 3.5 10^3/uL (1.5-7.6); ABS Nucleated RBC 0.01 10^3/ul; Eosinophil % 2.5 %; Hematocrit 32.1 % (38-53); Hemoglobin 10.5 g/dL (13.2-16.3); Lymphocyte % 29.2 %; Mean Corpuscular Hemoglobin 29.2 pg (27-33); Mean Corpuscular Hgb Conc 32.6 g/dL (31-36); Mean Corpuscular Volume 89.5 fL (80-97); Mean Platelet Volume 7.6 fL (7.5-11.2); Nucleated Red Blood Cells % 0.1 %/100WBC (0.0-0.8); Platelet Count 280 10^3/uL (150-450); Red Blood Count 3.58 10^6/uL (4.06-5.63); Red Cell Distribution Width 16.1 % (12-17); White Blood Count 6.5 10^3/uL (3.6-10.2)
[2023-11-19 06:15] LABS: Calcium 8.7 mg/dL (8.6-10.3); Creatinine, Serum 3.77 mg/dL (0.67-1.17); Magnesium 1.8 mg/dL (1.9-2.7); eGFR CKD-EPI 16.2 (>60)
[2023-11-19] MEDS: PAIN RELIEVING RUB (MENTHOL/SALICYLATE) 1 APPLIC TUBE TOPICAL PRN (09:07)
[2023-11-20 05:47] LABS: ABS Basophils 0.1 10^3/uL (0.0-0.1); ABS Eosinophils 0.1 10^3/uL (0.0-0.5); ABS Lymphocytes 1.9 10^3/uL (1.0-4.8); ABS Monocytes 0.9 10^3/uL (0.0-1.1); ABS Neutrophils 3.7 10^3/uL (1.5-7.6); ABS Nucleated RBC 0.01 10^3/ul; Eosinophil % 2.1 %; Hematocrit 32.1 % (38-53); Hemoglobin 10.7 g/dL (13.2-16.3); Lymphocyte % 28.3 %; Mean Corpuscular Hemoglobin 29.6 pg (27-33); Mean Corpuscular Hgb Conc 33.4 g/dL (31-36); Mean Corpuscular Volume 88.5 fL (80-97); Mean Platelet Volume 7.6 fL (7.5-11.2); Nucleated Red Blood Cells % 0.2 %/100WBC (0.0-0.8); Platelet Count 283 10^3/uL (150-450); Red Blood Count 3.62 10^6/uL (4.06-5.63); Red Cell Distribution Width 16.2 % (12-17); White Blood Count 6.7 10^3/uL (3.6-10.2)
[2023-11-20 06:29] LABS: Calcium 8.8 mg/dL (8.6-10.3); Creatinine, Serum 3.68 mg/dL (0.67-1.17); Potassium 4.2 mmol/L (3.5-5.0); eGFR CKD-EPI 16.6 (>60)
[2023-11-20] MEDS: FLUTICASONE SALMETEROL INH SCH (07:52)
[2023-11-20 09:54] VITALS: BP 135/63
[2023-11-22 10:15] LABS: ANNA-1, S Negative (Negative); ANNA-2, S Negative (Negative); GFAP IFA, S Negative (Negative); IFA Notes None.; NIF IFA, S Negative (Negative); Neurochondrin IFA, S Negative (Negative); mGluR1 Ab IFA, S Negative (Negative)
== END 2023-11-20 13:20 | disposition home or self-care (01) | DRG 871 ==
LOC: ED 13:25 → SUATTDRO 21:21 → EDHOLD 21:21 → MEDTELE 11-07 11:41 → ICU 11-11 17:28 → MEDTELE 11-15 22:58
PROVIDERS: ADMIT Internal Medicine; ATTEND Family Medicine